=== PATIENT | female | born 1990 | race Two or more races ===

== ENCOUNTER 2020-04-30 12:31 | Emergency (ER) | payer OTHER ==
[~2020-04-30] VITALS: Ht 172.7 cm; Wt 86.2 kg
[2020-04-30 13:40] VITALS: BP 130/83
== END 2020-04-30 12:48 | disposition left against medical advice (07) ==
LOC: ER 12:31
DX: R50.9 Fever, unspecified (principal); Z20.828 Contact with and (suspected) exposure to other viral communicable diseases